=== PATIENT | male | born 1970 | race Caucasian/White ===

== ENCOUNTER → 2021-11-09 15:50 | Outpatient (BNVA) | payer OTHER, SELFPAY | PROVIDERS: PCP Internal Medicine; Visit Provider Surgery | DX: K40.90 Unilateral inguinal hernia, without obstruction or gangrene, not specified as recurrent (principal) | CPT/HCPCS: 99212 ==

== ENCOUNTER 2021-12-01 07:25 | Day surgery (SDC) | payer OTHER, SELFPAY ==
[2021-11-24 14:43] VITALS: BMI 23.5
--- NOTE | 2021-11-30 10:56 | P.CONAN_ITS ---
Documented by User: Brenna Stafford NP 11/30/21 10:57 HPI - Anesthesia Eval Consult details Narrative: 51yo M for Right Hernia Repair Inguinal with Mesh PMFSH Active Problems Active Problems: All Active Problems (Updated 11/24/21 @ 14:21 by Connie Pineda RN) Right inguinal hernia (Acute) Past Medical History Medical History ADHD (attention deficit hyperactivity disorder) Depression GERD (gastroesophageal reflux disease) Homeless OCD (obsessive compulsive disorder) ABIGAIL (obstructive sleep apnea) Smoker Surgical History Surgical History (Updated 12/01/21 @ 09:37 by Neo Pendleton MD) H/O left inguinal hernia repair S/P right inguinal herniorrhaphy (12/01/21) Social History Social History Housing Other:: Residing in a tent behind [employer] Are you a primary certified social workers in health care to a significant other at home: No Do you presently have visiting nurse or other home services: No Alcohol intake: former Patient Tobacco Use Status: Current everyday Tobacco user Tobacco use type: Cigarette Cigarette Packs Per Day: 0.5 Cigarettes Per Day: 10.0 Years Smoked: 30 Smoked in Last 30 Days: Yes Patient Interested in Nicotine Replacement: No Use of substances other than those prescribed or required for medical reasons: No Have you been hit, kicked, punched, or otherwise hurt by someone within the past year? If so, by whom?: No Are you DNR?: No Advance Directives: No Advance Directives Information Provided: No Advance Directives on File: No Recently lost weight without trying: No Eating poorly because of decreased appetite: No Nutrition Risks: No Nutritional Risk Meds Allergies Allergy/AdvReac Type Severity Reaction Status Date / Time erythromycin base Allergy Mild Hives Verified 11/24/21 14:01 Home Medications Medication Instructions Recorded Confirmed Last Taken Type dextroamphetamine-amphetamine 30 1 tab PO BID 11/09/21 11/24/21 Unknown History mg tablet lamotrigine 200 mg tablet 200 mg PO DAILY 11/09/21 11/24/21 Unknown History omeprazole magnesium 20 mg 20 mg PO DAILY 11/09/21 11/24/21 Unknown History tablet,delayed release (Prilosec OTC) risperidone 0.5 mg tablet 0.5 mg PO BEDTIME 11/09/21 11/24/21 Unknown History valacyclovir 500 mg tablet 500 mg PO BID 11/09/21 11/24/21 Unknown History Exam Exam Date and Time: November 30, 2021 1056 Height,Weight and Vital Signs: Height 6 ft 1 in Weight 80.739 kg Assessment and Plan Assessment Anesthesia Assessment: Chart Reviewed Documented by User: Patience Reynaga MD 12/01/21 10:19 [facility] Past Medical History Medical History ADHD (attention deficit hyperactivity disorder) Depression GERD (gastroesophageal reflux disease) Homeless OCD (obsessive compulsive disorder) ABIGAIL (obstructive sleep apnea) Smoker Family History Family history of problems with anesthesia: No Surgical History Surgical History (Updated 12/01/21 @ 09:37 by Neo Pendleton MD) H/O left inguinal hernia repair S/P right inguinal herniorrhaphy (12/01/21) History of Problems with Anesthesia: No Social History Social History Housing Other:: Residing in a tent behind [employer] Are you a primary certified social workers in health care to a significant other at home: No Do you presently have visiting nurse or other home services: No Alcohol intake: former Patient Tobacco Use Status: Current everyday Tobacco user Tobacco use type: Cigarette Cigarette Packs Per Day: 0.5 Cigarettes Per Day: 10.0 Years Smoked: 30 Smoked in Last 30 Days: Yes Patient Interested in Nicotine Replacement: No Use of substances other than those prescribed or required for medical reasons: No Have you been hit, kicked, punched, or otherwise hurt by someone within the past year? If so, by whom?: No Are you DNR?: No Advance Directives: No Advance Directives Information Provided: No Advance Directives on File: No Recently lost weight without trying: No Eating poorly because of decreased appetite: No Nutrition Risks: No Nutritional Risk Meds Allergies Allergy/AdvReac Type Severity Reaction Status Date / Time erythromycin base Allergy Mild Hives Verified 11/24/21 14:01 Home Medications Medication Instructions Recorded Confirmed Last Taken Type dextroamphetamine-amphetamine 30 1 tab PO BID 11/09/21 11/24/21 Unknown History mg tablet lamotrigine 200 mg tablet 200 mg PO DAILY 11/09/21 11/24/21 Unknown History omeprazole magnesium 20 mg 20 mg PO DAILY 11/09/21 11/24/21 Unknown History tablet,delayed release (Prilosec OTC) risperidone 0.5 mg tablet 0.5 mg PO BEDTIME 11/09/21 11/24/21 Unknown History valacyclovir 500 mg tablet 500 mg PO BID 11/09/21 11/24/21 Unknown History Exam Height,Weight and Vital Signs: Height 6 ft 1 in Weight 80.739 kg Vital Signs Temp Pulse Resp BP Sats 98.7 67 16 129/87 99 08:30 08:30 08:30 08:30 08:30 Airway Mallampati Class: II TM Dist: >3cm Neck ROM: Full Loose/Missing/Broken Teeth: Yes (Some missing) Heart: RRR Lungs: Bilateral audible wheezes Other: Lungs CTAB post nebulizer treatment Assessment and Plan Assessment Anesthesia Assessment: Anesthesia Plan Discussed Final Anesthetic Review Family History of Problems with Anesthesia: No History of Problems with Anesthesia: No NPO: Yes ASA Class: III Final Preanesthetic Review: No Changes in Pt Med Stat, Meds/Allgs Chart Reviewed, Consent Obtained/Reviewed and Anes Risks/Benef Reviewed Patient Risk: Intermediate Procedure Risk: Low Assessment/Block/Sedation in SS: Assess/Block/Sedation-SS Anesthetic Plan Anesthetic Plan: GA Disposition: Standard PACU
[2021-12-01] VITALS (10 sets, daily range): BP systolic 106–142; BP diastolic 62–89; PULSE 67–78; RESP 16–20; TEMP 36.7–37.2; O2SAT 99–100
--- NOTE | 2021-12-01 07:17 | MHC.SHP ---
Pre-Procedural Eval Section A Date of Service: 12/01/21 The patient is an INPATIENT: No Changes since office visit: Yes Patient answered all questions; No Cold of Flu in the past 2 weeks, No New Medical Problems and No Changes in Medication The History & Physical has been completed within 30 days and I have reviewed it.: Yes Section B Chief Complaint: Right Inguinal Hernia Allergies: Allergies Allergy/AdvReac Type Severity Reaction Status Date / Time erythromycin base Allergy Mild Hives Verified 11/24/21 14:01 Plan Diagnosis/Plan: Unchanged I have reviewed the history and physical and performed a pertinent physical examination on my patient. No changes have occurred unless specified.
[2021-12-01] MEDS: Albuterol Sulfate (0.083%) 2.5 MG/3 ML VIAL.NEB INHALE (08:23)
[2021-12-01] MEDS: Lactated Ringers 1,000 ML 100 ML IVCONT (08:32)
--- NOTE | 2021-12-01 09:39 | P.OP_ITS ---
Operative Note Operative Note Date of Service: 12/01/21 Narrative: Preoperative diagnosis: Right inguinal hernia Postoperative diagnosis: Same Procedure: Repair of right inguinal hernia with mesh Surgeon: Neo Pendleton MD Sanitation Worker Cleaning Machinery: Lianne Antonio PA-C Anesthesia: General LMA Indications for procedure: 51-year-old male patient presenting with a previous history of a left inguinal hernia repaired with mesh now presenting with a new hernia on the right side. The patient reports significant pain associated with the hernia. The hernia was noted to increase in size with lifting and straining reduce with light pressure. Operative findings: Indirect right inguinal hernia repaired with a large extended PHS mesh. Specimen: Hernia sac Estimated blood loss: 5 mL Complications: None Procedure details: Patient was brought to the OR and placed in a supine po sition. After administering general anesthesia the patient's abdomen was prepped ChloraPrep and draped in a sterile fashion. A surgical time-out was called the consent confirmed. Patient received preoperative antibiotics and Venodyne boots were in place. Local anesthesia consisting of 0.5% Sensorcaine was infiltrated over the right inguinal ligament. An incision was then made over the right inguinal ligament carried out through subcutaneous tissue. Incision was carried down past Corina's fashion up to the external oblique aponeurosis. Additional local was infiltrated below the aponeurosis. The aponeurosis was then incised with a scalpel wide with the Metzenbaum scissors. Spermatic cord was then bluntly dissected from the surrounding inguinal canal and retracted using a [place] drain. The floor of the inguinal canal was found to be intact without evidence of a hernia. Fibers of the cremasteric muscle were then with electrocautery. A large indirect hernia sac was identified. This was dissected down to the internal ring. The sac was opened in all the contents reduced. Sac was then ligated using a 0 Polysorb suture. Sac was then excised and sent to pathology for further examination. Attention was then directed to the floor of the inguinal canal. Internal oblique aponeurosis and transversalis aponeurosis was then divided using electrocautery. The preperitoneal space was then entered. This was then widened using an open Ray-Genevieve sponge. A large extended PHS mesh was then obtained. The circular underlay was deployed into the preperitoneal space. The overlay was then secured to the pubic tubercle, conjoined tendon, and shelving edge of the inguinal ligament using a 0 Polysorb suture. A slit was made in the mesh at the internal ring and wrapped around the spermatic cord at the internal ring. This was secured to the shelving edge of the inguinal ligament using a 0 Polysorb suture. The remainder of the mesh was placed below the external oblique aponeurosis laterally. Wounds were then irrigated with saline solution and suctioned dry. The internal ring was tightened up to allow only the tip of an index finger to pass. External oblique aponeurosis was then closed using a running 2 0 Polysorb suture. Corina's fascia and dermis were then reapproximated using interrupted 3-0 Polysorb sutures. Skin was closed using a running subcuticular 4-0 Polysorb suture. Sterile dressings consisting of 2 x 2 gauze and Tegaderm were then applied. The patient tolerated the procedure well. Sponge, instrument, and needle counts reported as correct. Patient was transferred to PACU in stable condition.
[2021-12-01] MEDS: fentaNYL citrate/PF 100 MCG/2 ML VIAL 25 MCG IVPUSH (10:26)
[2021-12-01] MEDS: Acetaminophen 325 MG TABLET 650 MG PO (10:27)
[2021-12-01] MEDS: oxyCODONE HCl Immed Release 5 MG TABLET PO (10:28)
[2021-12-01] MEDS: Ketorolac Tromethamine 15 MG/ML VIAL IVPUSH (10:38)
--- NOTE | 2021-12-01 11:38 | PC.NURSE ---
THIS RN WAS MADE AWARE THAT PATIENT IS HOMELESS AND LIVES IN A TENT WITH HIS . PATIENT DOES HAVE A RIDE HOME. SEPTIC TANK SERVICE TECHNICIAN STATED THAT DR. BOUCHER IS AWARE. THIS RN ALSO CALLED GRACIELA WILL, FACILITIES AND GROUNDS DIRECTOR AND SHE STATED THAT EVERYONE IS AWARE.
== END 2021-12-01 11:43 | disposition home or self-care (01) ==
PROVIDERS: Visit Provider Surgery
PROC: (CPT 49505; principal; 2021-12-01 09:10)
DX: K40.90 Unilateral inguinal hernia, without obstruction or gangrene, not specified as recurrent (principal); Z87.19 Personal history of other diseases of the digestive system; G47.33 Obstructive sleep apnea (adult) (pediatric); F42.9 Obsessive-compulsive disorder, unspecified; F33.9 Major depressive disorder, recurrent, unspecified; F90.9 Attention-deficit hyperactivity disorder, unspecified type; Z79.899 Other long term (current) drug therapy; Z88.1 Allergy status to other antibiotic agents; F17.210 Nicotine dependence, cigarettes, uncomplicated; Z59.01 Sheltered homelessness
CPT/HCPCS: 49505; 88302; 94640; C1781; J0690; J1100; J1885; J2250; J2370; J2405; J3010